=== PATIENT | female | born 1955 | race Native Hawaiian/Other Pacific Islander ===

== ENCOUNTER 2018-11-25 11:23 | Inpatient (IN) | payer SELFPAY ==
[~2018-11-25] VITALS: Ht 167.6 cm; Wt 72.7 kg
[2018-11-25] MEDS ORDERED: ZOFRAN ODT4 MG/UDTAB PO (11:36)
[2018-11-25] MEDS ORDERED: LEVOFLOXACIN500 MG PO (11:36)
[2018-11-25] MEDS ORDERED: TAMIFLU75 MG PO (11:36)
[2018-11-25] MEDS ORDERED: ACETAMINOPHEN325 MG PO (11:37)
[2018-11-25 12:25] LABS: BASOPHILS 0.2 % (0-2); EOSINOPHILS 0.1 % (0-7); HEMATOCRIT 38.1 % (36.0-48.0); HEMOGLOBIN 12.7 g/dL (12-16); IMMATURE GRANULOCYTES 0.3 % (0-5); LYMPHOCYTES 16.3 % (15-50); MCH 29.1 pg (26.0-34.0); MCHC 33.3 g/dL (31.0-37.0); MCV 87.2 fL (80.0-100.0); MEAN PLATELET VOLUME 8.9 fL (7.4-10.4); MONOCYTES 6.6 % (2-11); NEUTROPHILS 76.5 % (40-80); PLATELET COUNT 330 10x3/uL (130-400); RBC 4.37 10x6/uL (4.00-5.40); RDW 12.7 % (11.5-14.5); WBC 10.1 10x3/uL (4.8-10.8)
[2018-11-25 12:40] LABS: APTT 26.9 SECONDS (22.8-39.4); INR 1.01 (0.85-1.17); PROTIME 12.8 SECONDS (11.6-15.0)
[2018-11-25 12:47] LABS: ALBUMIN 2.8 g/dL (3.4-5.0); ALKALINE PHOSPHATASE 169 U/L (46-116); ALT (SGPT) 227 U/L (10-68); BILIRUBIN - TOTAL 0.43 mg/dL (0.2-1.3); CALC OSMOLALITY 272 mosm/kg (275-300); CALCIUM 9.4 mg/dL (8.5-10.1); CARBON DIOXIDE 25.5 mmol/L (21.0-32.0); CHLORIDE - SERUM 98 mmol/L (98-107); CREATININE - SERUM 0.8 mg/dL (0.6-1.3); GLUCOSE 95 mg/dL (74-106); POTASSIUM - SERUM 3.5 mmol/L (3.5-5.1); PROTEIN - SERUM 7.8 g/dL (6.4-8.2); SODIUM 137 mmol/L (136-145); UREA NITROGEN 10 mg/dL (7-18); eGFR NON AFRICAN AMERICAN 77 mL/min (90-120)
[2018-11-25 12:59] LABS: CKMB 0.3 U/L (0.0-3.6); CREATINE KINASE 64 UL (21-215); TROPONIN-I < 0.017 ng/mL (0.000-0.060)
--- NOTE | 2018-11-25 14:16 | NUR ---
LR INFUSION COMPLETE AT 1413
--- NOTE | 2018-11-25 16:41 | NUR ---
[facility] INFUSION COMPLETE AT 1553. 750MG INFUSED.
[2018-11-25 19:56] VITALS: BP 113/61; Ht 167.6 cm; Wt 72.7 kg
[2018-11-25 20:00] VITALS: BP 112/70
--- NOTE | 2018-11-25 20:30 | NUR ---
AWAKE,ALERT.NO COMPLAINTS VOICED. SKIN WARM DRY.RESP EVEN AND UNALBORED. NO DISTRESS NOTED. NON PRODUCTIVE COUGH NOTED. SL TO RFA WITHOUT REDNESS OR EDEMA NOTED. CL IN REACH
[2018-11-26 04:00] VITALS: BP 125/75
[2018-11-26 05:45] LABS: BASOPHILS 0.1 % (0-2); EOSINOPHILS 0.1 % (0-7); HEMOGLOBIN 12.7 g/dL (12-16); IMMATURE GRANULOCYTES 0.5 % (0-5); LYMPHOCYTES 16.3 % (15-50); MCH 29.1 pg (26.0-34.0); MCHC 33.4 g/dL (31.0-37.0); MCV 87.2 fL (80.0-100.0); MEAN PLATELET VOLUME 8.6 fL (7.4-10.4); MONOCYTES 6.9 % (2-11); NEUTROPHILS 76.1 % (40-80); PLATELET COUNT 314 10x3/uL (130-400); RBC 4.36 10x6/uL (4.00-5.40); RDW 12.7 % (11.5-14.5); WBC 8.8 10x3/uL (4.8-10.8)
[2018-11-26 06:36] LABS: ALBUMIN 2.5 g/dL (3.4-5.0); ALKALINE PHOSPHATASE 140 U/L (46-116); CALC OSMOLALITY 278 mosm/kg (275-300); CHLORIDE - SERUM 103 mmol/L (98-107); CREATININE - SERUM 0.8 mg/dL (0.6-1.3); GLUCOSE 88 mg/dL (74-106); POTASSIUM - SERUM 3.5 mmol/L (3.5-5.1); PROTEIN - SERUM 7.2 g/dL (6.4-8.2); SODIUM 141 mmol/L (136-145); UREA NITROGEN 10 mg/dL (7-18); eGFR NON AFRICAN AMERICAN 77 mL/min (90-120)
[2018-11-26 06:39] LABS: ALT (SGPT) 162 U/L (10-68)
--- NOTE | 2018-11-26 07:30 | NUR ---
PATIENT IN BED WITH EYES CLOSED RESTING QUIETLY AT THIS TIME. IV INTACT. CALL LIGHT WITHIN REACH.
[2018-11-26 08:45] VITALS: BP 116/78
--- NOTE | 2018-11-26 10:45 | NUR ---
PATIENT SITTING UP IN BED. UNABLE TO SIT STILL AND NOT LISTENING TO OR NURSE AT THIS TIME TO NOT PULL ON CATHETER OR MOVE HIP AROUND. TRYING TO EXPLAINE HE HAD SURGERY FOR A BROKEN HIP. PATIENT CONFUSED AND UPSET. FINALLY GOT TO TAKE MEDS CRUSHED WITH PUDDING. WILL CONTINUE TO MONITOR. CALL LIGHT WITHIN REACH.
--- NOTE | 2018-11-26 11:30 | NUR ---
PATIENT SITTING UP IN BED WITH IV INTACT. NO COMPLAINTS. CALL LIGHT WITHIN REACH.
[2018-11-26 12:45] VITALS: BP 112/69
--- NOTE | 2018-11-26 14:00 | NUR ---
PATIENT IV STARTED IN RIGHT HAND X'S ONE STICK. TOLERATED WITH SMALL AMOUNT OF PAIN. IVF AND ABX STARTED. CALL LIGHT WITHIN REACH. FAMILY AT BEDSIDE.
[2018-11-26 15:56] LABS: APPEARANCE CLEAR (CLEAR); BILIRUBIN NEGATIVE (NEGATIVE); COLOR YELLOW (YELLOW); GLUCOSE NEGATIVE (NEGATIVE); KETONE MODERATE mg/dL (NEGATIVE); NITRITE NEGATIVE (NEGATIVE); PROTEIN NEGATIVE (NEGATIVE); UROBILINOGEN NORMAL (NORMAL)
--- NOTE | 2018-11-26 16:02 | NUR ---
PATIENT IN BED WITH IV INTACT. NO COMPLAINTS OR SIGNS OF DISTRESS. FAMILY AT BEDSIDE. CALL LIGHT WITHIN REACH.
[2018-11-26 16:48] VITALS: BP 125/89
[2018-11-26 20:28] VITALS: BP 120/71
[2018-11-27 00:46] VITALS: BP 97/57
--- NOTE | 2018-11-27 03:17 | NUR ---
PT LYING IN BED RESTING, NO SIGNS OF DISTRESS. BED LOWEST POSITION, SRX2, CL IN REACH. WILL CONTINUE TO MONITOR
[2018-11-27 05:24] VITALS: BP 106/69
[2018-11-27 07:10] LABS: BASOPHILS 0.5 % (0-2); EOSINOPHILS 0.2 % (0-7); HEMATOCRIT 37.9 % (36.0-48.0); HEMOGLOBIN 12.5 g/dL (12-16); IMMATURE GRANULOCYTES 0.6 % (0-5); LYMPHOCYTES 31.2 % (15-50); MCV 87.9 fL (80.0-100.0); MEAN PLATELET VOLUME 8.6 fL (7.4-10.4); MONOCYTES 7.7 % (2-11); NEUTROPHILS 59.8 % (40-80); RBC 4.31 10x6/uL (4.00-5.40); RDW 12.7 % (11.5-14.5)
[2018-11-27 07:16] LABS: PLATELET COUNT 386 10x3/uL (130-400); WBC 6.2 10x3/uL (4.8-10.8)
[2018-11-27 07:23] LABS: ANION GAP 14.1 mmol/L (8-16); CALCIUM 8.9 mg/dL (8.5-10.1); CARBON DIOXIDE 27.9 mmol/L (21.0-32.0); CREATININE - SERUM 0.9 mg/dL (0.6-1.3)
--- NOTE | 2018-11-27 08:29 | NUR ---
ALERT AND ORIENTD. ISOLATION DROPPLET PRECAUTIONS DUE TO HX INFLUENZA. LUNGS CTA NONPRODUCTIVE COUGH. CAP REFILL <3 SEC ON RA. DENIES ANY PAINS OR DISCOMFORT. ENCOURAGED TO USE CALL LIGHT FOR ASSIST. VERBALIZED UNDERSTANDING
[2018-11-27 09:53] VITALS: BP 116/64
--- NOTE | 2018-11-27 19:15 | NUR ---
RECEIVED CARE FROM DAY NURSE. LYING IN BED WATCHING TV. REPORTS NO NEEDS AT THIS TIME. CALL LIGHT AT SIDE. IV SL TO LEFT WRIST. ON ROOM AIR.
[2018-11-27 20:42] VITALS: BP 116/80
--- NOTE | 2018-11-28 04:10 | NUR ---
RESTING IN BED RESP UNLABORED NO APPARENT DISTRESS, CALL LIGHT IN REACH
[2018-11-28 04:32] VITALS: BP 98/61
[2018-11-28 08:23] LABS: BASOPHILS 0.4 % (0-2); EOSINOPHILS 0.4 % (0-7); HEMATOCRIT 38.5 % (36.0-48.0); HEMOGLOBIN 12.8 g/dL (12-16); IMMATURE GRANULOCYTES 0.4 % (0-5); LYMPHOCYTES 38.8 % (15-50); MCH 29.4 pg (26.0-34.0); MCHC 33.2 g/dL (31.0-37.0); MCV 88.3 fL (80.0-100.0); MEAN PLATELET VOLUME 8.7 fL (7.4-10.4); MONOCYTES 8.9 % (2-11); NEUTROPHILS 51.1 % (40-80); PLATELET COUNT 411 10x3/uL (130-400); RBC 4.36 10x6/uL (4.00-5.40); RDW 12.8 % (11.5-14.5); WBC 5.5 10x3/uL (4.8-10.8)
[2018-11-28 08:40] LABS: ANION GAP 14.2 mmol/L (8-16); CALCIUM 8.9 mg/dL (8.5-10.1); CARBON DIOXIDE 26.9 mmol/L (21.0-32.0); CREATININE - SERUM 0.9 mg/dL (0.6-1.3); POTASSIUM - SERUM 4.1 mmol/L (3.5-5.1)
[2018-11-28 08:48] VITALS: BP 140/80
[2018-11-28] MEDS ORDERED: LEVOFLOXACIN500 MG PO (10:28)
[2018-11-28] MEDS ORDERED: TAMIFLU75 MG PO (10:28)
--- NOTE | 2018-11-28 11:03 | NUR ---
ALERT AND ORIENTED. LUNGS CTA. DENIES ANY SHORTNESS OF BREATH. ORDER FOR DISCHARGE GIVEN WITH IV DISCONTINUED. CXR IMPROVED. ENCOURAGED TO USE CALL LIGHT FOR ASSIST.NO PERIPHERAL EDEMA NOTED.
== END 2018-11-28 14:21 | disposition home or self-care (01) | DRG 195 ==
LOC: D.ER 11:23 → D.EDHOLD 13:36 → D.MS 13:36
PROVIDERS: Family Medicine; ADMIT Internal Medicine Nephrology
DX: J11.08 Influenza due to unidentified influenza virus with specified pneumonia (principal); J32.4 Chronic pansinusitis; J18.1 Lobar pneumonia, unspecified organism; G31.9 Degenerative disease of nervous system, unspecified; R74.0 Nonspecific elevation of levels of transaminase and lactic acid dehydrogenase [LDH]